=== PATIENT | male | born 1995 | race Caucasian/White ===

== ENCOUNTER 2017-05-17 09:16 | Emergency (ER) | payer BC, SELFPAY ==
--- NOTE | 2017-05-17 10:51 | RAD ---
CHEST 2 VIEWS: Date: 05/17/17 HISTORY: 21-year-old male with chest pain and jaw swelling. COMPARISON: 09/14/07. FINDINGS: Heart size is within normal limits. The lungs are clear. No pneumonia, edema, or pleural effusion. IMPRESSION: No acute intrathoracic disease. POS: [facility]
== END 2017-05-17 11:05 | disposition home or self-care (01) ==
LOC: ERS 09:16
DX: K02.9 Dental caries, unspecified (principal); K03.81 Cracked tooth; R07.9 Chest pain, unspecified; F17.210 Nicotine dependence, cigarettes, uncomplicated
CPT/HCPCS: 71020

== ENCOUNTER 2021-04-29 13:06 | Emergency (ER) | payer BC | END 2021-04-29 14:30 | disposition home or self-care (01) | LOC: ERS 13:06 | DX: K02.9 Dental caries, unspecified (principal); F17.210 Nicotine dependence, cigarettes, uncomplicated | CPT/HCPCS: 99283 ==

== ENCOUNTER 2021-06-13 11:32 | Emergency (ER) | payer BC ==
[2021-06-13] MEDS ORDERED: Ketorolac Tromethamine 30 MG/ML VIAL ONE (12:08)
== END 2021-06-13 12:20 | disposition home or self-care (01) ==
LOC: ERS 11:32
DX: K02.9 Dental caries, unspecified (principal); F17.210 Nicotine dependence, cigarettes, uncomplicated
CPT/HCPCS: 96372; 99283; J1885

== ENCOUNTER 2023-04-24 07:29 | Emergency (ER) | payer SELFPAY ==
[2023-04-24] MEDS ORDERED: Dexamethasone 10 MG/ML VIAL ONE (08:58)
== END 2023-04-24 09:05 | disposition home or self-care (01) ==
LOC: ERS 07:29
DX: J02.9 Acute pharyngitis, unspecified (principal); F17.210 Nicotine dependence, cigarettes, uncomplicated
CPT/HCPCS: 87081; 87430; 99283; J1100